=== PATIENT | female | born 1995 | race Caucasian/White ===

== ENCOUNTER 2016-12-25 18:31 | Emergency (ER) | payer SELFPAY ==
[2016-12-25 19:07] VITALS: BP 121/78
--- NOTE | 2016-12-25 19:24 | UC ---
Knee Pain HPI - HPI Summary HPI Summary: complaint of left knee pain injured her knee in high school "popped her knee" went to PT and was told she had arthritis last week at work she was lifting and then her knee started to become painful standing on her knee is painful denies trauma or feeling of instability denies swelling not taking any medication for pain today - History of Current Complaint Chief Complaint: UCLowerExtremity Stated Complaint: KNEE INJURY Time Seen by Provider: 12/25/16 19:11 Hx Obtained From: Patient Hx Last Menstrual Period: merina - Allergies/Home Medications Allergies/Adverse Reactions: Allergies Allergy/AdvReac Type Severity Reaction Status Date / Time Acetaminophen [From Tylenol] Allergy migraine Verified 05/26/16 14:25 red dye Allergy Rash Uncoded 05/26/16 14:25 PMH/Surg Hx/FS Hx/Imm Hx Previously Healthy: Yes Psychological History: Depression - Surgical History Surgical History: None - Family History Known Family History: Positive: Respiratory Disease Negative: Cardiac Disease, Hypertension - Social History Occupation: Employed Full-time Lives: With Family Alcohol Use: Rare Substance Use Type: None Smoking Status (MU): Never Smoked Tobacco Type: Smokeless Tobacco Amount Used/How Often: 1/2ppd Review of Systems Constitutional: Negative Skin: Negative Eyes: Negative ENT: Negative Respiratory: Negative Cardiovascular: Negative Gastrointestinal: Negative Genitourinary: Negative Motor: Negative Neurovascular: Negative Musculoskeletal: Other: - left knee pain Neurological: Negative Psychological: Negative All Other Systems Reviewed And Are Negative: Yes Physical Exam Triage Information Reviewed: Yes Appearance: No Pain Distress, Well-Nourished, Obese Vital Signs: Initial Vital Signs Temp 98.6 F 12/25/16 19:03 Pulse 91 12/25/16 19:03 Resp 20 12/25/16 19:03 BP 121/78 12/25/16 19:03 Pulse Ox 97 12/25/16 19:03 Vital Signs Reviewed: Yes Eyes: Positive: Conjunctiva Clear ENT: Positive: Pharynx normal, TMs normal Neck: Positive: No Lymphadenopathy Respiratory: Positive: Lungs clear, Normal breath sounds, No respiratory distress, No accessory muscle use Cardiovascular: Positive: RRR, No Murmur, Pulses Normal Abdomen Description: Positive: Nontender, Soft Bowel Sounds: Positive: Present Musculoskeletal: Positive: Other: - LLE-No bony deformities, tenderness lateral side of knee No bakers cyst. Full ROM (extension/flexion). Limited internal and external rotation. Medial, lateral meniscus; anterior, posterior cruciate ligaments ,medial & lateral collateral ligaments intact as assessed with negative Anterior/Posterior Drawer signs, Lachmans, and McMurrays Tests. No effusion, bulge/balloon sign. Neurological Exam: Normal Psychological Exam: Normal Skin Exam: Normal Knee Pain Course/Dx - Course Course Of Treatment: exam completed. no indication for x-ray at thei time. will refer to PT for further evaluation and treatment , Start NSAIDS, RICE followup with PCP - Differential Dx/Diagnosis Differential Diagnosis/HQI/PQRI: Fracture (Closed), Internal Derangement Of Knee , Sprain, Strain Provider Diagnoses: left knee sprain Discharge - Discharge Plan Condition: Stable Disposition: HOME Prescriptions: Ibuprofen TAB* [Motrin TAB* 800 MG] 800 mg PO Q8H #30 tab Patient Education Materials: Knee Pain (ED), RICE Therapy (ED) Forms: *Work Release Referrals: Naya TIWARI,Rene Erickson [Physician Filter Helper] - Additional Instructions: Please call physical therapy for further evaluation and treatment. Take ibuprofen for fever or pain. Increase fluids and rest. Please review your discharge instructions. If your symptoms do not improve please call your primary care provider or return to urgent care.
== END 2016-12-25 19:30 | disposition home or self-care (01) ==
LOC: UCEAST 18:31
DX: S83.92XA Sprain of unspecified site of left knee, initial encounter (principal); X50.0XXA Overexertion from strenuous movement or load, initial encounter
CPT/HCPCS: 99212; G0463